=== PATIENT | female | born 1990 | race American Indian/Alaskan Native ===

== ENCOUNTER 2019-08-21 14:25 | Emergency (ER) | payer MEDICAID ==
[2019-08-21] MEDS ORDERED: ACETAMINOPHEN 325 MG TAB PO ONE (16:10)
--- NOTE | 2019-08-21 16:12 | Emergency Department Report ---
Chief Complaint: Abdominal Pain Stated Complaint: 18 WKS PREG PAIN - HPI History of Present Illness: 28 yo F with left flank pain and lower abd/pelv pain since this morning. No vag bleeding, discharge, dysuria. No fever. Has not taken anything for symptoms prior to presentation. Follows with Dr Brian PENA. . - Exam Vital Signs: Vital Signs 08/21/19 14:28 Temperature 98.1 F Pulse Rate 87 Respiratory 18 Rate Blood Pressure 118/54 O2 Sat by Pulse 99 Oximetry Physical Exam: TTP to general abdomen but worse to lower quadrants. Abd soft. No CVA TTP. Awake and alert and oriented. MSE screening note: Focused history and physical exam performed. Due to findings the following was ordered: CBC, CMP, U/A U/S Patient discussed with doctor:: YARELIS HERNANDEZ ED Disposition for MSE Condition: Stable Instructions: Abdominal Pain (ED)
[2019-08-21 16:40] LABS: Basophils % (Auto) 0.2 % (0.0-1.8); Eosinophils % (Auto) 0.1 % (0.0-4.3); Hematocrit 36.5 % (30.3-42.9); Hemoglobin 12.2 gm/dl (10.1-14.3); Lymphocytes # (Auto) 1.3 K/mm3 (1.2-5.4); Lymphocytes % (Auto) 7.8 % (13.4-35.0); Mean Corpuscular HGB Conc 33 % (30-34); Mean Corpuscular Volume 94 fl (79-97); Monocytes # (Auto) 0.5 K/mm3 (0.0-0.8); Monocytes % (Auto) 2.8 % (0.0-7.3); Platelet Count 278 K/mm3 (140-440); Red Blood Count 3.89 M/mm3 (3.65-5.03); Red Cell Distribution Width 13.1 % (13.2-15.2)
[2019-08-21 17:05] LABS: Alanine Aminotransferase 8 units/L (7-56); Albumin 4.3 g/dL (3.9-5); BUN/Creatinine Ratio 20; Blood Urea Nitrogen 8 mg/dL (7-17); Calcium 9.5 mg/dL (8.4-10.2); Hemolysis Index 4
[2019-08-21 18:03] LABS: Bacteria,Urine 2+ /HPF (Negative); Bilirubin,Urine NEG (Negative); Blood,Urine NEG (Negative); Color,Urine Yellow (Yellow); Protein,Urine <15 mg/dL mg/dL (Negative); Urobilinogen,Urine < 2.0 mg/dL (<2.0)
--- NOTE | 2019-08-21 18:22 | Ultrasound Report ---
COMPLETE TRANSABDOMINAL OB PELVIC ULTRASOUND INDICATION / CLINICAL INFORMATION: Abdominal pain while . COMPARISON: None available. FINDINGS: There is a single intrauterine with an estimated sonographic gestational age of 18 weeks 0 days and an EDC of 01/22/2020. Clinical dates are 18 weeks 1 day. The heart rate is 156 bpm. Fe marcos presentation is breech. Amniotic fluid volume is normal. The placenta is located posteriorly and laterally on the left, is grade 0 and is free of the os. The uterine cervix is suboptimally imaged. N either ovary is seen. There is a single echogenic intracardiac focus in the left ventricle. No other abnormality is s een. The intracranial and spinal anatomy are normal. The stomach, kidneys, urinary bladde r and diaphragm are normal. A three-vessel umbilical cord is present and inserts normally on the feta l abdomen. IMPRESSION: 1. Single viable 18 week intrauterine without acute complication. 2. Echogenic intracardiac focus in the left ventricle. Unless this is a high risk , the find ings are most commonly secondary to an incidental benign variant. Signer Name: Kermit Vázquez MD Signed: 08/21/2019 6:18 PM Workstation Name: [id number]
--- NOTE | 2019-08-21 19:38 | Emergency Department Report ---
ED Female HPI - General Chief complaint: Abdominal Pain Stated complaint: 18 WKS PREG PAIN Time Seen by Provider: 08/21/19 17:18 Source: patient Mode of arrival: Wheelchair Limitations: No Limitations - History of Present Illness Initial comments: Patient is a A5 28-year-old -Gabones[place] female who is approximately 18 weeks gestation who presented to the ED with acute onset persistent nontraumatic suprapubic and left lower quadrant pain for over 8 hours. Patient stated the pain is constant and persistent since onset. The patient denies fall, traumatic injury, heavy lifting, nausea, vomiting, vaginal bleeding, vaginal discharge, dysuria, urinary frequency and urgency, fever, chills, cough, shortness of breath, chest pain, dizziness or headache, and low back pain. MD Complaint: pelvic pain, other (left lower abdominal pain) -: Sudden, hour(s) (8) Location: suprapubic, LLQ Radiation: non-radiating Severity: severe Severity scale (0 -10): 7 Quality: cramping, sharp Consistency: constant Improves with: none Worsens with: movement Are you Now?: Yes (18 weeks gestation) Associated Symptoms: denies other symptoms, abdominal pain, loss of appetite. denies: vaginal discharge, vaginal bleeding, nausea/vomiting, fever/chills, headaches, dysuria, hematuria, rash, seizure, shortness of breath, syncope, weakness, other - Related Data Sexually active: Yes : 6 Para: 0 A: 5 Previous Rx's Medication Instructions Recorded Last Taken Type Acetaminophen [Mapap] 500 mg PO Q6H PRN #30 tablet 08/21/19 Unknown Rx Cyclobenzaprine [Flexeril] 10 mg PO Q8H PRN #15 tablet 08/21/19 Unknown Rx Promethazine [Phenergan] 25 mg PO Q6HR PRN #30 tab 08/21/19 Unknown Rx Allergies Allergy/AdvReac Type Severity Reaction Status Date / Time No Known Allergies Allergy Verified 08/21/19 16:11 ED Review of Systems ROS: Stated complaint: 18 WKS PREG PAIN Other details as noted in HPI Constitutional: denies: chills, fever Eyes: denies: eye pain, eye discharge, vision change ENT: denies: ear pain, throat pain Respiratory: denies: cough, shortness of breath, wheezing Cardiovascular: denies: chest pain, palpitations Endocrine: no symptoms reported Gastrointestinal: abdominal pain (LLQ and suprapubic area). denies: diarrhea Genitourinary: denies: urgency, dysuria, discharge Musculoskeletal: denies: back pain, joint swelling, arthralgia Skin: denies: rash, lesions Neurological: denies: headache, weakness, paresthesias Psychiatric: denies: anxiety, depression Hematological/Lymphatic: denies: easy bleeding, easy bruising ED Past Medical Hx - Past Medical History Previous Medical History?: No - Surgical History Past Surgical History?: No - Social History Smoking Status: Never Smoker Substance Use Type: None - Medications Home Medications: Home Medications Medication Instructions Recorded Confirmed Last Taken Type Acetaminophen [Mapap] 500 mg PO Q6H PRN #30 tablet 08/21/19 Unknown Rx Cyclobenzaprine [Flexeril] 10 mg PO Q8H PRN #15 tablet 08/21/19 Unknown Rx Promethazine [Phenergan] 25 mg PO Q6HR PRN #30 tab 08/21/19 Unknown Rx ED Physical Exam - General Limitations: No Limitations General appearance: alert, in no apparent distress - Head Head exam: Present: atraumatic, normocephalic - Eye Eye exam: Present: normal appearance, PERRL, EOMI Pupils: Present: normal accommodation - ENT ENT exam: Present: normal exam, normal orophraynx, mucous membranes moist, TM's normal bilaterally, normal external ear exam - Neck Neck exam: Present: normal inspection, full ROM. Absent: tenderness - Respiratory Respiratory exam: Present: normal lung sounds bilaterally. Absent: respiratory distress, wheezes, rales, rhonchi, chest wall tenderness, accessory muscle use - Cardiovascular Cardiovascular Exam: Present: regular rate, normal rhythm, normal heart sounds. Absent: systolic murmur, diastolic murmur, rubs, gallop - GI/Abdominal GI/Abdominal exam: Present: soft, tenderness (Mild LLQ tenderness), normal bowel sounds. Absent: guarding, rebound, hyperactive bowel sounds, hypoactive bowel sounds - Bi-manual exam: Present: other (Pelvic exam deferred by patient) - Extremities Exam Extremities exam: Present: normal inspection, full ROM, normal capillary refill - Back Exam Back exam: Present: normal inspection, full ROM. Absent: tenderness, CVA tenderness (L), muscle spasm, paraspinal tenderness - Neurological Exam Neurological exam: Present: alert, oriented X3, CN II-XII intact, normal gait, reflexes normal - Psychiatric Psychiatric exam: Present: normal affect, normal mood - Skin Skin exam: Present: warm, dry, intact, normal color. Absent: rash ED Course Vital Signs 08/21/19 14:28 Temperature 98.1 F Pulse Rate 87 Respiratory 18 Rate Blood Pressure 118/54 O2 Sat by Pulse 99 Oximetry ED Medical Decision Making - Lab Data Result diagrams: 08/21/19 16:21 08/21/19 16:21 - Radiology Data Radiology results: report reviewed, image reviewed Findings [facility] [address] [place] [address] Ultrasound Report Signed Patient: ARELI CAMPBELL MR#: [id number] : 1990 Acct:[id number] Age/Sex: 28 / F ADM Date: 08/21/19 Loc: ED Attending Dr: Ordering Physician: YARELIS HERNANDEZ DO Date of Service: 08/21/19 Procedure(s): US OB >= 14 weeks Fetus Accession Number(s): [id number] cc: YARELIS HERNANDEZ DO COMPLETE TRANSABDOMINAL OB PELVIC ULTRASOUND INDICATION / CLINICAL INFORMATION: Abdominal pain while . COMPARISON: None available. FINDINGS: There is a single intrauterine with an estimated sonographic gestational age of 18 weeks 0 days and an EDC of 01/22/2020. Clinical dates are 18 weeks 1 day. The heart rate is 156 bpm. presentation is breech. Amniotic fluid volume is normal. The placenta is located posteriorly and laterally on the left, is grade 0 and is free of the os. The uterine cervix is suboptimally imaged. Neither ovary is seen. There is a single echogenic intracardiac focus in the left ventricle. No other abnormality is seen. The intracranial and spinal anatomy are normal. The stomach, kidneys, urinary bladder and diaphragm are normal. A three-vessel umbilical cord is present and inserts normally on the abdomen. IMPRESSION: 1. Single viable 18 week intrauterine without acute complication. 2. Echogenic intracardiac focus in the left ventricle. Unless this is a high r isk , the findings are most commonly secondary to an incidental benign variant. Signer Name: Kermit Vázquez MD Signed: 08/21/2019 6:18 PM Workstation Name: [id number] Transcribed By: RT Dictated By: Kermit Vázquez MD Electronically Authenticated By: Kermit Vázquez MD Signed Date/Time: 08/21/191817 DD/ 10 - Medical Decision Making This is a A5 28-year-old -[place]e female who is approximately 18 weeks gestation who presented to the ED with acute onset persistent suprapubic and left lower quadrant pain. In the ED, patient is alert and oriented 3 and is not in distress. Lab test results were reviewed and show acute leukocytosis of 17,100, that is lab test results abdomen actually. Pelvic ultrasound shows a single viable 18 week intrauterine without acute complication. There is also an incidental finding of an echogenic intracardiac focus in the left ventricle. Unless this is a high risk , the findings are most commonly secondary to an incidental benign variant. Patient was treated for pain in the ED with Tylenol and on reevaluation, patient's pain is moderately controlled with pain medications. The patient was discharged home and advised to take Tylenol as needed for pain, and HAVE a complete bedrest for 3-5 days and follow-up with the [facility] physician Dr. Le in 5-7 days for reevaluation. Patient was advised to avoid heavy lifting, strenuous physical activity or sexual activity at this time and to contact Dr. Le' office to schedule a follow-up appointment. Patient was advised to return to the ED immediately if symptoms get worse. - Differential Diagnosis UTI; Ovarian cyst; ; Muscle strain Critical care attestation.: If time is entered above; I have spent that time in minutes in the direct care of this critically ill patient, excluding procedure time. ED Disposition Clinical Impression: Strain of muscle, fascia and tendon of abdomen, initial encounter Abdominal pain in Qualifiers: Trimester: second trimester Qualified Code(s): O26.892 - Other specified related conditions, second trimester; R10.9 - Unspecified abdominal pain Disposition: DC-01 TO HOME OR SELFCARE Is pt being admited?: No Does the pt Need Aspirin: No Condition: Stable Instructions: Abdominal Pain (ED), Muscle Strain (ED) Additional Instructions: Maintain a complete bedrest with no heavy lifting, strenuous physical activity, sexual activity and take Tylenol as needed for pain. Follow-up with your [facility] physician in 5-7 days for reevaluation. Return to the emergency Department immediately if symptoms get worse. Prescriptions: Cyclobenzaprine [Flexeril] 10 mg PO Q8H PRN #15 tablet PRN Reason: Muscle Spasm Acetaminophen [Mapap] 500 mg PO Q6H PRN #30 tablet PRN Reason: Pain , Severe (7-10) Promethazine [Phenergan] 25 mg PO Q6HR PRN #30 tab PRN Reason: Nausea Referrals: PRIMARY CAREMD [Primary Care Provider] - 3-5 Days NORMA LE MD [Staff Physician] - 3-5 Days Forms: Work/School Release Form(ED) Time of Disposition: 19:54 Print Language: EMIRATI
[2019-08-21] MEDS ORDERED: ACETAMINOPHEN 500 MG TAB PO ONE (19:59)
[2019-08-21] MEDS ORDERED: CYCLOBENZAPRINE 10 MG TAB PO ONE (20:00)
[2019-08-21] MEDS ORDERED: ONDANSETRON 4 MG ODT TAB PO ONE (20:00)
[2019-08-21 20:21] VITALS: BP 122/68
== END 2019-08-21 20:20 | disposition home or self-care (01) ==
LOC: ED 14:25
DX: O9A.212 Injury, poisoning and certain other consequences of external causes complicating pregnancy, second trimester (principal); S39.011A Strain of muscle, fascia and tendon of abdomen, initial encounter; O26.892 Other specified pregnancy related conditions, second trimester; R10.32 Left lower quadrant pain; Z79.899 Other long term (current) drug therapy; Z3A.18 18 weeks gestation of pregnancy; X58.XXXA Exposure to other specified factors, initial encounter; Y93.89 Activity, other specified; Y92.89 Other specified places as the place of occurrence of the external cause; Y99.8 Other external cause status
CPT/HCPCS: 36415; 76805; 80053; 81001; 84703; 85025; Q0162